=== PATIENT | female | born 1950 | race Caucasian/White ===

== ENCOUNTER 2018-06-07 13:48 | Emergency (ER) | payer MEDICARE, MEDICAID ==
[2017-09-07 09:06] VITALS: Wt 67.1 kg
[~2018-06-07 13:48] MED LIST: AMIT1TAB PO; AMOX500T10 PO; ASPI-1441 PO; BUTA1CAP36 PO; CLAR-1 PO; CLO1 PO; CLO5 PO; CLON-304 PO; CLOR15TA PO; DIA10 PO; DIA5 PO; DICL-195 PO; ESTR1 PO; ESTR2TAB PO; FIO PO; HYDR-3072 PO; HYDRO25 PO; KENALOG CREAM; LANS1COM7 PO; LEVO50TA80 PO; LOR2I IV; LOR5 PO; LOR5/325 PO; MEC125 PO; MECL-111 PO; MECL-205 PO; ONDA4TAB PO; PANT40TA65 PO; PERP1TAB PO; PRE20 PO; PREDNISONE; PRO25 PO; SCOT; TRAM-420 PO; TRIAVIL; [UNRECOGNIZED DRUG - CODE] PO; [UNRECOGNIZED DRUG - CODE] PO; [UNRECOGNIZED DRUG - OTHER]; [UNRECOGNIZED DRUG - REMARK]
--- NOTE | 2018-06-07 14:02 | ER Report ---
History and Physical Time Seen By MD: 14:01 HPI/ROS CHIEF COMPLAINT: Left-sided low back pain HISTORY OF PRESENT ILLNESS: Patient is a 67-year-old female who presents to the emergency department for evaluation of left-sided low back pain that began last night and continued into today. Patient states she had been doing some mopping last evening but nothing too "heavy". She does not recall having a fall or any other traumatic injury. The patient states that the pain is located to the left lumbar aspect of the paraspinal area. She denies any radiation. Pain level currently is 4 out of 10 and worsens with movement. Denies any dysuria or hematuria. She denies any vaginal discharge or bleeding. She denies any inguinal pain. She denies any similar episodes in the past REVIEW OF SYSTEMS: Cardiovascular: No chest pain, no palpitations. Respiratory: No cough, no shortness of breath. Gastrointestinal: No abdominal pain, no vomiting. Genitourinary: No hematuria. Musculoskeletal: Left lower back pain Skin: No rashes. Allergies: Coded Allergies: codeine (Verified Allergy, Intermediate, NAUSEA/VOMITING, 09/05/17) promethazine (Verified Allergy, Intermediate, AGITATION, 09/05/17) Home Meds Active Scripts Methocarbamol (METHOCARBAMOL) 750 Mg Tablet, 1500 MG PO QID for Muscle Relaxant , #30 TAB 0 Refills Prov:HERBERTH GARNER MD 06/07/18 Hydrocodone Bit/Acetaminophen (HYDROCODON-ACETAMINOPHEN 5-325) 1 Each Tablet, 1 EACH PO Q4-6H Y for PAIN, #12 TAB 0 Refills TAKE ONE TABLET BY MOUTH EVERY 4-6 HOURS NEEDED FOR PAIN Prov:HERBERTH GARNER MD 06/07/18 Clonazepam (CLONAZEPAM) 1 Mg Tablet, 1 MG PO TID Y for ANXIETY, #30 TAB Prov:ALEXI TALLEY DO 09/07/17 Reported Medications Perphenazine/Amitriptyline Hcl (PERPHEN-AMITRIP 2 MG-25 MG TAB) 1 Each Tablet, 1 EACH PO QHS 09/05/17 Estradiol (ESTRACE) 2 Mg Tablet, 2 MG PO DAILY 09/05/17 Levothyroxine Sodium (Synthroid) 50 Mcg Tablet, 50 MCG PO QDAY, 0 Refills 08/06/11 Past Medical/Surgical History Past medical history significant for anxiety, hypothyroidism she had a recent admission after being found hypothermic this past year with an elevated blood alcohol level of 274. History of GERD. Hx Smoking: No Smoking Status: Never Smoker Exposure to Second Hand Smoke?: No Hx Substance Use Disorder: No Hx Alcohol Use: Yes Constitutional Vital Sign - Last 24 Hours 06/07/18 06/07/18 06/07/18 06/07/18 14:01 14:02 14:30 15:00 Temp 97.8 Pulse 71 73 71 Resp 18 B/P (MAP) 144/90 (108) 144/90 139/77 (97) 136/75 (95) Pulse Ox 94 93 92 O2 Delivery Room Air Physical Exam General appearance: alert no distress. Back: Thoracic spine has no spinal or paraspinal tenderness to palpation. Lumbar spine has no spinal tendernes; moderate left paraspinal tenderness Gastroinal: Abdomen is soft, non tender, no masses.. Skin: No lesions and no rashes. Vascular: Normal capillary refill and pulses to feet. Neurological: Motor function: leg strength normal and symmetric for both legs Sensory function: normal for all leg dermatomes. Straight leg raise negative to 70 degrees. Reflexes normal bilaterally on legs. DIFFERENTIAL DIAGNOSIS: After history and physical exam differential diagnosis was considered for back pain including muscular strain, herniated disc, intra- abdominal and renal causes. Medical Decision Making Data Points Laboratory Hematology Test 06/07/18 13:57 Urine Color Colorless Urine Clarity Clear Urine pH 5.0 pH (4.8-9.5) Urine Specific [place] 1.002 Urine Protein Negative mg/dL (NEGATIVE) Urine Glucose (UA) Negative mg/dL (NEGATIVE) Urine Ketones Negative mg/dL (NEGATIVE) Urine Blood Negative (NEGATIVE) Urine Nitrite Negative (NEGATIVE) Urine Bilirubin Negative (NEGATIVE) Urine Urobilinogen Negative mg/dL (0.2-1.9) Urine Leukocyte Esterase Negative (NEGATIVE) Urine RBC <1 /HPF (0-2/HPF) Urine WBC <1 /HPF (0-5/HPF) Urine Squamous Epithelial Cells Many /LPF (</=FEW) Urine Bacteria Few /HPF (NONE-FEW) Urine Mucus None /HPF (NONE-FEW) Chemistry Test 06/07/18 13:57 Urine Color Colorless Urine Clarity Clear Urine pH 5.0 pH (4.8-9.5) Urine Specific [place] 1.002 Urine Protein Negative mg/dL (NEGATIVE) Urine Glucose (UA) Negative mg/dL (NEGATIVE) Urine Ketones Negative mg/dL (NEGATIVE) Urine Blood Negative (NEGATIVE) Urine Nitrite Negative (NEGATIVE) Urine Bilirubin Negative (NEGATIVE) Urine Urobilinogen Negative mg/dL (0.2-1.9) Urine Leukocyte Esterase Negative (NEGATIVE) Urine RBC <1 /HPF (0-2/HPF) Urine WBC <1 /HPF (0-5/HPF) Urine Squamous Epithelial Cells Many /LPF (</=FEW) Urine Bacteria Few /HPF (NONE-FEW) Urine Mucus None /HPF (NONE-FEW) Urinalysis Test 06/07/18 13:57 Urine Color Colorless Urine Clarity Clear Urine pH 5.0 pH (4.8-9.5) Urine Specific [place] 1.002 Urine Protein Negative mg/dL (NEGATIVE) Urine Glucose (UA) Negative mg/dL (NEGATIVE) Urine Ketones Negative mg/dL (NEGATIVE) Urine Blood Negative (NEGATIVE) Urine Nitrite Negative (NEGATIVE) Urine Bilirubin Negative (NEGATIVE) Urine Urobilinogen Negative mg/dL (0.2-1.9) Urine Leukocyte Esterase Negative (NEGATIVE) Urine RBC <1 /HPF (0-2/HPF) Urine WBC <1 /HPF (0-5/HPF) Urine Squamous Epithelial Cells Many /LPF (</=FEW) Urine Bacteria Few /HPF (NONE-FEW) Urine Mucus None /HPF (NONE-FEW) ED Course/Re-evaluation ED Course 06/07/2018 3:16:26 pm plan at this time will be oral pain medication we'll also obtain urinalysis. We will obtain x-ray of the lumbar spine. Decision to Disposition Date: Jun 07, 2018 Decision to Disposition Time: 15:20 Depart Departure Latest Vital Signs Vital Signs Date Time Temp Pulse Resp B/P (MAP) Pulse Ox O2 Delivery O2 Flow Rate FiO2 06/07/18 15:00 71 136/75 (95) 92 06/07/18 14:02 97.8 18 Room Air Impression: Primary Impression: Low back pain Condition: Improved Disposition: HOME OR SELF-CARE Referrals: IGNACIO PASCAL (PCP) 1 Week If symptoms persist New Scripts Methocarbamol (METHOCARBAMOL) 750 Mg Tablet 1500 MG PO QID for Muscle Relaxant, #30 TAB 0 Refills Prov: HERBERTH GARNER MD 06/07/18 Hydrocodone Bit/Acetaminophen (HYDROCODON-ACETAMINOPHEN 5-325) 1 Each Tablet 1 EACH PO Q4-6H Y for PAIN, #12 TAB 0 Refills TAKE ONE TABLET BY MOUTH EVERY 4-6 HOURS NEEDED FOR PAIN Prov: HERBERTH GARNER MD 06/07/18 Patient Instructions: Acute Low Back Pain (ED) Problem Qualifiers Primary Impression: Low back pain Chronicity: acute Back pain laterality: left Sciatica presence: without sciatica Qualified Codes: M54.5 - Low back pain HERBERTH GARNER MD Jun 07, 2018 14:02
[2018-06-07] MEDS ORDERED: APAP/HYDROCODONE 325/5 TAB PO ONE (14:30)
[2018-06-07] MEDS ORDERED: METHOCARBAMOL 500 MG TAB PO ONE (14:30)
[2018-06-07 15:00] VITALS: BP 136/75
[2018-06-07] MEDS ORDERED: METH-280 PO (15:19)
[2018-06-07] MEDS ORDERED: LOR5/325 PO (15:19)
--- NOTE | 2018-06-07 15:39 | RADIOLOGY IMAGING REPORT ---
FACILITY: [facility] PATIENT NAME: Anna Chavez : 1950 MR: [id number] V: [id number] EXAM DATE: ORDERING PHYSICIAN: HERBERTH GARNER TECHNOLOGIST: Location: [facility] - [place] Patient: Anna Chavez : 1950 Visit/Account:[id number] Date of Sevice: 06/07/2018 Exam type: LUMBAR SPINE 4 VIEWS History: Back pain Comparison: August 23, 2015 Findings: There are five nonrib-bearing lumbar-type vertebral bodies present. There is a levoconvex scoliosis lumbar spine with the curvature centered about L2-3.. Small anterior osteophytes with a sclerotic end plate changes are again seen from L1 to L5. No evidence of acute fractures or subluxations. IMPRESSION: 1. Multilevel spondylotic changes of the lumbar spine appear similar to the prior study from August 23, 2015 Report Dictated By: Samantha Quinn MD at 06/07/2018 3:29 PM Report E-Signed By: Samantha Quinn MD at 06/07/2018 3:34 PM WSN:[email or web address]
== END 2018-06-07 15:26 | disposition home or self-care (01) ==
LOC: ER 14:01
DX: M54.5 Low back pain (principal); F41.9 Anxiety disorder, unspecified; E03.9 Hypothyroidism, unspecified
CPT/HCPCS: 72120; 81001; 99283; A9270

== ENCOUNTER 2018-09-23 13:27 | Emergency (ER) | payer MEDICARE, MEDICAID ==
[2017-09-07 09:06] VITALS: Wt 66.2 kg
[~2018-09-23 13:27] MED LIST changes: -CLON-304 PO; +CLON-333 PO; +METH-280 PO
[2018-09-23] MEDS ORDERED: APAP/HYDROCODONE 325/5 TAB PO ONE (13:50)
--- NOTE | 2018-09-23 14:01 | ER Report ---
History and Physical Time Seen By MD: 13:38 Hx. of Stated Complaint: RIGHT HIP PAIN HPI/ROS CHIEF COMPLAINT: r hip pain HISTORY OF PRESENT ILLNESS: pt has atraumatic hip pain r side. began 1 wk ago, constant, no precipitating events. No prior similar events. Has taken 2 ibuprofen, not seen primary, no other treatment. No prior hip injuries or surgeries. No radiation of pain. Pain 8-9 when moving. No abd pain, n/v/f/c/weakness/numbness REVIEW OF SYSTEMS: Constitutional: No fever, no chills. Eyes: No discharge. ENT: No sore throat. Cardiovascular: No chest pain, no palpitations. Respiratory: No cough, no shortness of breath. Gastrointestinal: No abdominal pain, no vomiting. Genitourinary: No hematuria. Musculoskeletal: No back pain. Skin: No rashes. Neurological: No headache. Remainder of the 14 system rev: Yes Allergies: Coded Allergies: codeine (Verified Allergy, Intermediate, NAUSEA/VOMITING, 09/23/18) promethazine (Verified Allergy, Intermediate, AGITATION, 09/23/18) Home Meds Active Scripts Clonazepam (CLONAZEPAM) 1 Mg Tablet, 1 MG PO TID PRN for ANXIETY, #30 TAB Prov:ALEXI TALLEY DO 09/07/17 Reported Medications Perphenazine/Amitriptyline Hcl (PERPHEN-AMITRIP 2 MG-25 MG TAB) 1 Each Tablet, 1 EACH PO QHS 09/05/17 Estradiol (ESTRACE) 2 Mg Tablet, 2 MG PO DAILY 09/05/17 Levothyroxine Sodium (Synthroid) 50 Mcg Tablet, 50 MCG PO QDAY, 0 Refills 08/06/11 Discontinued Scripts Methocarbamol (METHOCARBAMOL) 750 Mg Tablet, 1500 MG PO QID for Muscle Relaxant, #30 TAB 0 Refills Prov:HERBERTH GARNER MD 06/07/18 Hydrocodone Bit/Acetaminophen (HYDROCODON-ACETAMINOPHEN 5-325) 1 Each Tablet, 1 EACH PO Q4-6H PRN for PAIN, #12 TAB 0 Refills TAKE ONE TABLET BY MOUTH EVERY 4-6 HOURS NEEDED FOR PAIN Prov:HERBERTH GARNER MD 06/07/18 Hx Smoking: No Smoking Status: Never Smoker Exposure to Second Hand Smoke?: No Hx Substance Use Disorder: No Hx Alcohol Use: Yes Constitutional Vital Sign - Last 24 Hours 09/23/18 09/23/18 09/23/18 09/23/18 13:27 13:33 13:34 13:57 Temp 98.0 Pulse 82 81 81 Resp 14 B/P (MAP) 134/75 134/75 (94) Pulse Ox 94 94 93 O2 Delivery Room Air 09/23/18 09/23/18 09/23/18 09/23/18 14:00 14:27 14:30 14:57 Pulse 83 75 B/P (MAP) 127/79 (95) 121/97 (105) Pulse Ox 93 94 09/23/18 09/23/18 09/23/18 09/23/18 15:00 15:05 15:30 15:35 Pulse 74 80 B/P (MAP) 139/74 (95) 135/74 (94) Pulse Ox 93 95 Physical Exam General Appearance: The patient is alert, has no immediate need for airway protection and no signs of toxicity. Eyes: Pupils equal and round no pallor or injection. ENT, Mouth: Mucous membranes are moist. Respiratory: There are no retractions, lungs are clear to auscultation. Cardiovascular: Regular rate and rhythm. Gastrointestinal: Abdomen is soft and non tender, no masses, bowel sounds normal. Neurological: alert, oriented, nad Skin: Warm and dry, no rashes. Musculoskeletal: Extremities are nontender, nonswollen and have full range of motion. r gluteal ttp at area of piriformis. Neg SLR bilat 5 5/ms bilat. 2+ reflexes. Nl sensation DIFFERENTIAL DIAGNOSIS: After history and physical exam differential diagnosis was considered for cauda equina, sciatica, fracture, other emergent etiology of symptoms. Medical Decision Making ED Course/Re-evaluation ED Course Pt presents with gluteal pain; considered cauda equina/fracture, but symptoms peripheral and not c/w true sciatica. As piriformis palpation completely reproduces symtoms, I offered injection for trigger point pain; trigger point injection with near complete relief and no complications. Pt ambulates without difficulty on d/c. Procedure Procedure: Trigger point injection Indication - Point tender muscle pain Consent - verbal after discussion of r/b Preparation - standard sterile prep Performance - after sterile prep and marking of spot of maximum tenderness, I injected 5mL of a 50% mixture of 1% lidocaine/ 0.5% marcaine, after w/d to ensure no vessel injection. Pt tolerated well without complications. Decision to Disposition Date: Sep 23, 2018 Decision to Disposition Time: 15:45 Depart Departure Latest Vital Signs Vital Signs Date Time Temp Pulse Resp B/P (MAP) Pulse Ox O2 Delivery O2 Flow Rate FiO2 09/23/18 15:35 80 95 09/23/18 15:30 135/74 (94) 09/23/18 13:33 98.0 14 Room Air Impression: Primary Impression: Muscle strain of right gluteal region Condition: Improved Disposition: HOME OR SELF-CARE Referrals: IGNACIO PASCAL (PCP) Patient Instructions: Hip Pain (GEN), Muscle Spasm (ED) Additional Instructions: As we discussed, I recommend you stretch at least twice daily, in addition, lie on hard floor with tennis ball under the spot of maximal pain. You may take ibuprofen and tylenol as needed for pain. Return for uncontrolled pain or any concerns. Problem Qualifiers Primary Impression: Muscle strain of right gluteal region Encounter type: initial encounter Qualified Codes: S76.011A - Strain of muscle, fascia and tendon of right hip, initial encounter HERBERTH AGUILLON MD Sep 23, 2018 14:01
--- NOTE | 2018-09-23 14:24 | RADIOLOGY IMAGING REPORT ---
[place] [facility] [place] NAME: Anna Chavez : 1950 MR: [id number] V: [id number] EXAM DATE: ORDERING PHYSICIAN: HERBERTH AGUILLON TECHNOLOGIST: Location: [facility] - [place] Patient: Anna Chavez : 1950 Visit/Account:[id number] Date of Sevice: 09/23/2018 HIP RIGHT Indication: Hip pain. Comparison: 06/14/2015 Findings: There is no acute fracture or dislocation of the right hip. Mild degenerative changes right hip joint noted The pelvis is intact. IMPRESSION: 1. Mild degenerative change, no acute abnormalities noted Report Dictated By: Matthew Mariano at 09/23/2018 2:19 PM Report E-Signed By: Matthew Mariano at 09/23/2018 2:19 PM WSN:[email or web address]
[2018-09-23 15:30] VITALS: BP 135/74
== END 2018-09-23 15:57 | disposition home or self-care (01) ==
LOC: ER 13:37
DX: S76.011A Strain of muscle, fascia and tendon of right hip, initial encounter (principal)
CPT/HCPCS: 20552; 73502; 99283; A9270; 99284

== ENCOUNTER → 2018-12-03 | Outpatient (CLI) | payer MEDICARE, MEDICAID ==
[2017-09-07 09:06] VITALS: BMI 25.4
--- NOTE | 2018-12-03 09:34 | RADIOLOGY IMAGING REPORT ---
FACILITY: [facility] PATIENT NAME: Anna Chavez : 1950 MR: [id number] V: [id number] EXAM DATE: ORDERING PHYSICIAN: DENA ESTRELLA TECHNOLOGIST: Location: [facility] Patient: Anna Chavez : 1950 Visit/Account:[id number] Date of Sevice: 12/03/2018 LIVER HISTORY: Elevated LFTs COMPARISON: Liver ultrasound September 12, [address] abdomen and pelvis August 16, 2017 FINDINGS: Gallbladder: There is a 3 mm fixed nonshadowing echogenic focus seen within the gallbladder possibly a polyp. Liver: There is increased echogenicity throughout the liver which can be seen with fatty infiltration other infiltrative process Common duct: Normal, 3.7 mm diameter. Pancreas: Partially obscured by bowel, visualized aspects unremarkable. Right kidney: Right kidney appears unremarkable measuring 10.9 cm in length Upper abdominal aorta and IVC: Patent. Ascites: None visualized. IMPRESSION: Increased echogenicity throughout the liver which can be seen with fatty infiltration other infiltrat frantz process There is a 3 mm fixed echogenic nonshadowing focus seen within the gallbladder possibly a polyp Report Dictated By: Samantha Quinn MD at 12/03/2018 8:47 AM Report E-Signed By: Samantha Quinn MD at 12/03/2018 9:29 AM WSN:[email or web address]
== END ==
LOC: US 01:45
PROVIDERS: ATTEND Nurse Practitioner Family
DX: K76.0 Fatty (change of) liver, not elsewhere classified (principal)
CPT/HCPCS: 76705